=== PATIENT | male | born 1960 | race Caucasian/White ===

== ENCOUNTER 2022-03-31 22:00 | Observation (INO) | payer OTHER ==
[2022-04-01 02:07] VITALS: BMI 27.5
[2022-04-01] MEDS ORDERED: ANTIVENIN,CROTALIDAE (ANAVIP) 10 EACH in Sodium Chloride 0.9% 250 ML 250 ML IVPB SCH (04:00)
[2022-04-01] MEDS ORDERED: Acetaminophen 650 MG Suppository PR PRN (05:40)
[2022-04-01] MEDS ORDERED: Acetaminophen 325 MG TAB PO PRN (05:40)
[2022-04-01] MEDS ORDERED: Ondansetron ODT 4 MG TAB PO PRN (05:40)
[2022-04-01] MEDS ORDERED: Ondansetron PF 4 MG/2 ML Vial IVP PRN (05:40)
[2022-04-01] MEDS ORDERED: Sodium Chloride 0.9% 1,000 ML IV SCH (05:45)
[2022-04-01] MEDS ORDERED: hydrALAZINE 20 MG/ML VIAL SLOW IVP PRN (05:49)
[2022-04-01 08:27] LABS: #Lymphocytes 1.1 thou/uL (1.20-3.40); #Neutrophils 10.1 thou/uL (1.40-6.50); %Basophils 0.2 % (0.0-1.0); %Eosinophils 0.1 % (0.0-10.0); %Lymphocytes 8.7 % (21.0-51.0); %Monocytes 8.4 % (0.0-10.0); %Neutrophils 82.7 % (42.0-75.0); Hemoglobin 14.3 g/dL (14.0-18.0); Mean Corpuscular HGB CONC 33.3 g/dL (32.0-36.0); Mean Corpuscular Hemoglobin 32.9 pg (27.0-31.0); Mean Corpuscular Volume 98.7 fL (78.0-98.0); Mean Platelet Volume 8.2 fL (7.4-10.4); Platelet Count 175 thou/uL (130-400); RBC Distribution Width 11.5 % (11.5-14.5); Red Blood Cell (RBC) Count 4.34 mill/uL (4.70-6.10); White Blood Cell (WBC) Count 12.2 thou/uL (4.8-10.8)
[2022-04-01 08:48] LABS: Anion Gap 11 mmol/L (10-20); BUN (Urea Nitrogen) 26 mg/dL (8.4-25.7); Calc. Creatinine Clearance 82 mL/min (70-130); Calcium 8.2 mg/dL (7.8-10.44); Carbon Dioxide 26 mmol/L (23-31); Chloride 110 mmol/L (98-107); Glucose 116 mg/dL (80-115); Potassium 4.2 mmol/L (3.5-5.1); Sodium 143 mmol/L (136-145)
[2022-04-01] MEDS ORDERED: Non-Formulary Item 1 EACH (Benazepril Hcl [Lotensin] 40 MG Tablet) PO SCH (09:00)
[2022-04-01] MEDS ORDERED: Lisinopril 20 MG TAB PO SCH (09:00)
[2022-04-01 11:30] VITALS: BP 143/78; TEMP 97.5
[2022-04-01 11:51] LABS: INR-International Normal Ratio 1.1; Prothrombin Time 14.5 sec (12.0-14.7)
[2022-04-01 11:52] LABS: PTT 31.5 sec (22.9-36.1)
[2022-04-01] MEDS ORDERED: Non-Formulary Item 1 EACH (Multivitamin [Multivitamin] 1 EACH Tablet) PO SCH (21:00)
[2022-04-01] MEDS ORDERED: Multivit, Therapeutic 1 TAB PO SCH (21:00)
== END 2022-04-01 13:50 | disposition home or self-care (01) ==
LOC: 2SW 22:00
PROVIDERS: ADMIT Hospitalist; ATTEND Hospitalist
DX: T63.061A Toxic effect of venom of other North and South American snake, accidental (unintentional), initial encounter (principal); M79.641 Pain in right hand; M79.89 Other specified soft tissue disorders; I10 Essential (primary) hypertension; Z79.899 Other long term (current) drug therapy
CPT/HCPCS: 36415; 80048; 85025; 85384; 85610; 85730; 86141; 96365; G0378; J0476; J7050

== ENCOUNTER 2023-01-17 16:26 | Observation (INO) | payer OTHER ==
[~2023-01-17 16:26] MED LIST: Acetaminophen 325 MG TAB PO PRN; Iopamidol-370 76% 500 ML 1 ML ONE; Nitroglycerin 2% Ointment 1 INCH/1 GM Packet TOP PRN; Ondansetron ODT 4 MG TAB SL PRN; Ondansetron PF 4 MG/2 ML Vial IVP PRN
[2023-01-17 19:38] VITALS: BMI 26.7
[2023-01-17 20:37] LABS: Troponin I Less than 0.010 ng/mL (< 0.028)
[2023-01-17 23:41] LABS: Troponin I Less than 0.010 ng/mL (< 0.028)
[2023-01-18 07:09] LABS: Cardiac Risk 3.7 (Less than 4.5)
[2023-01-18] MEDS ORDERED: Lisinopril 20 MG TAB PO SCH (09:00)
[2023-01-18] MEDS ORDERED: Aspirin 81 mg Enteric Coated Tablet PO SCH (09:00)
[2023-01-18 16:15] VITALS: BP 173/84; TEMP 97.2
[2023-01-18] MEDS ORDERED: Multivit, Therapeutic 1 TAB PO SCH (21:00)
[2023-01-18] MEDS ORDERED: Atorvastatin Calcium 40 MG TAB PO SCH (21:00)
== END 2023-01-18 17:03 | disposition home or self-care (01) ==
LOC: NEURO 17:57
PROVIDERS: ADMIT Student in an Organized Health Care Education/Training Program; ATTEND Student in an Organized Health Care Education/Training Program
DX: G45.9 Transient cerebral ischemic attack, unspecified (principal); I16.1 Hypertensive emergency; I10 Essential (primary) hypertension; Z79.899 Other long term (current) drug therapy; Z20.822 Contact with and (suspected) exposure to COVID-19
CPT/HCPCS: 36415; 70496; 70498; 70551; 80061; 83036; 84443; 96372; G0378; J1650; Q9967; U0003; U0005

== ENCOUNTER 2023-03-14 10:19 | Day surgery (SDC) | payer OTHER ==
[2023-03-13 11:43] VITALS: BMI 27.3
[2023-03-14] MEDS ORDERED: PROPOFOL 40 ML ONE (12:17)
== END 2023-03-14 13:50 | disposition home or self-care (01) ==
LOC: SDC 10:19
PROVIDERS: ATTEND Internal Medicine Cardiovascular Disease
PROC: B246ZZ4 Ultrasonography of Right and Left Heart, Transesophageal (ICD-10-PCS; principal; 2023-03-14)
DX: G45.9 Transient cerebral ischemic attack, unspecified (principal); I70.0 Atherosclerosis of aorta; I10 Essential (primary) hypertension; E78.5 Hyperlipidemia, unspecified; Z79.82 Long term (current) use of aspirin; Z79.899 Other long term (current) drug therapy
CPT/HCPCS: 93312; J2704